=== PATIENT | male | born 1950 | race Asian ===

== ENCOUNTER 2020-09-08 15:43 | Outpatient (CLI) | payer OTHER | END 2020-09-08 20:00 | disposition home or self-care (01) | LOC: INF 15:43 | PROVIDERS: ATTEND Internal Medicine | DX: Z23 Encounter for immunization (principal) | CPT/HCPCS: 96372 ==

== ENCOUNTER 2020-09-28 13:14 | Outpatient (CLI) | payer OTHER | END 2020-09-28 21:20 | disposition home or self-care (01) | LOC: INF 13:14 | PROVIDERS: ATTEND Internal Medicine | DX: Z23 Encounter for immunization (principal) | CPT/HCPCS: 96372 ==

== ENCOUNTER 2022-06-09 09:20 | Outpatient (CLI) | payer OTHER ==
[2022-06-09 10:09] LABS: PLATELET COUNT 295 K/uL (142-355)
[2022-06-09 10:38] LABS: POTASSIUM 3.9 mmol/L (3.6-5.2)
== END 2022-06-09 19:02 | disposition home or self-care (01) ==
LOC: US 09:20
PROVIDERS: ATTEND Internal Medicine Nephrology
DX: I12.9 Hypertensive chronic kidney disease with stage 1 through stage 4 chronic kidney disease, or unspecified chronic kidney disease (principal); N18.31 Chronic kidney disease, stage 3a; D51.8 Other vitamin B12 deficiency anemias; D64.89 Other specified anemias; E55.9 Vitamin D deficiency, unspecified; E88.89 Other specified metabolic disorders; R94.6 Abnormal results of thyroid function studies; E78.49 Other hyperlipidemia; E11.65 Type 2 diabetes mellitus with hyperglycemia; Z12.0 Encounter for screening for malignant neoplasm of stomach; B18.2 Chronic viral hepatitis C
CPT/HCPCS: 36415; 80053; 80074; 81002; 82043; 82306; 82570; 82607; 82728; 82746; 83516; 83540; 83550; 83735; 83930; 83935; 83970; 84100; 84153; 84156; 84550; 85027; 85044; 86037; 86038; 86060; 86160; 86162; 86225; 86334; 86592

== ENCOUNTER 2022-06-12 08:59 | Outpatient (CLI) | payer OTHER | END 2022-06-12 20:20 | disposition home or self-care (01) | LOC: US 08:59 | PROVIDERS: ATTEND Internal Medicine Nephrology | DX: N18.31 Chronic kidney disease, stage 3a (principal) ==

== ENCOUNTER 2022-10-06 09:22 | Outpatient (CLI) | payer OTHER | END 2022-10-06 19:41 | disposition home or self-care (01) | LOC: MRI 09:22 | PROVIDERS: ATTEND Family Medicine | DX: L89.150 Pressure ulcer of sacral region, unstageable (principal); L89.323 Pressure ulcer of left buttock, stage 3 | CPT/HCPCS: 36415; 82565; 84520; A9576 ==

== ENCOUNTER 2023-01-10 11:18 | Outpatient (CLI) | payer OTHER ==
[2023-01-10 11:34] LABS: PLATELET COUNT 157 K/uL (142-355)
[2023-01-10 11:52] LABS: POTASSIUM 3.2 mmol/L (3.6-5.2)
== END 2023-01-10 20:26 | disposition home or self-care (01) ==
LOC: LAB 11:18
PROVIDERS: ATTEND Internal Medicine
DX: L08.89 Other specified local infections of the skin and subcutaneous tissue (principal); M86.8X8 Other osteomyelitis, other site; L89.150 Pressure ulcer of sacral region, unstageable; S81.802A Unspecified open wound, left lower leg, initial encounter; Y92.89 Other specified places as the place of occurrence of the external cause
CPT/HCPCS: 80053; 80202; 85027